=== PATIENT | male | born 1960 | race African-American/Black ===

== ENCOUNTER 2018-04-06 00:49 | Inpatient (IN) | payer SELFPAY ==
[~2018-04-06] VITALS: Ht 175.3 cm; Wt 103.9 kg
[2018-04-06 02:18] LABS: BASOPHILS % 0.7 % (0.0-2.0); HEMATOCRIT. 42.6 % (42.0-52.0); HEMOGLOBIN. 13.8 g/dL (14.0-18.0); MEAN CORPUSCULAR HEMOGLOBIN 28.2 pg (28.0-32.0); MEAN CORPUSCULAR VOLUME 87.1 fL (80.0-94.0); MEAN PLATELET VOLUME 9.5 fl (7.4-10.4); MONOCYTES % 4.7 % (2.0-8.0); NEUTROPHILS % 77.6 % (40.0-76.0); PLATELET 272 x1000/uL (130-400); RED BLOOD CELL COUNT 4.89 mill/uL (4.7-6.1); RED CELL DISTRIBUTION WIDTH 14.6 % (11.6-14.6)
[2018-04-06 02:20] LABS: CHLORIDE 100 mEq/L (98-107)
[2018-04-06] MEDS ORDERED: ASPIRIN 81MG TABLET PO NR (02:30)
[2018-04-06] MEDS ORDERED: ONDANSETRON HCL 4MG/2ML INJ IV STA (02:36)
[2018-04-06] MEDS ORDERED: MAGNESIUM/ALUMINUM HYDROXIDE/SIMETHICONE 30ML UDC PO STA (02:36)
[2018-04-06] MEDS ORDERED: FAMOTIDINE 20MG/2ML VIAL IV STA (02:36)
[2018-04-06] MEDS ORDERED: MORPHINE SULFATE 4 MG/ML CPJ (NOT FOR IM USE) IV STA (02:36)
[2018-04-06] MEDS ORDERED: NITROGLYCERIN OINT 1GM/INCH UDPKT TD ONE (03:00)
[2018-04-06] MEDS ORDERED: NITROGLYCERIN 0.4MG TABLET SL SL PRN (03:00)
[2018-04-06] MEDS ORDERED: ONDANSETRON HCL 4MG/2ML INJ IV PRN (10:30)
[2018-04-06] MEDS ORDERED: CLONIDINE 0.1MG TABLET PO PRN (10:30)
[2018-04-06 10:58] LABS: CREATINE KINASE MB FRACTION 4.3 ng/mL (0.5-3.6)
[2018-04-06] MEDS ORDERED: ENOXAPARIN 100MG/ML SYR SUBCUT NR (14:30)
[2018-04-06 14:40] LABS: *AMPHETAMINES SCREEN URINE NEGATIVE (NEGATIVE); *BARBITURATES SCREEN URINE NEGATIVE (NEGATIVE); *BENZODIAZEPINES SCREEN URINE NEGATIVE (NEGATIVE); *COCAINE SCREEN URINE NEGATIVE (NEGATIVE); CANNABINOID URINE SCREEN PRESUMTIVE POSITIVE (NEGATIVE); METHADONE URINE SCREEN NEGATIVE (NEGATIVE); OPIATES URINE SCREEN PRESUMTIVE POSITIVE (NEGATIVE); PHENCYCLIDINE URINE SCREEN NEGATIVE (NEGATIVE)
[2018-04-06 16:20] VITALS: BP 162/93
[2018-04-06] MEDS ORDERED: ATOR10TA69 PO (16:21)
[2018-04-06] MEDS ORDERED: ATEN50TA PO (16:22)
[2018-04-06] MEDS ORDERED: ISOS10TA2 PO (16:22)
[2018-04-06] MEDS ORDERED: ASPI-1159 PO (16:23)
[2018-04-06] MEDS ORDERED: HYDR25TA PO (16:23)
[2018-04-06] MEDS ORDERED: MORPHINE SULFATE 4 MG/ML CPJ (NOT FOR IM USE) IV PRN (16:45)
[2018-04-06 16:48] VITALS: BP 162/93
[2018-04-06] MEDS: OMEPRAZOLE 20MG CAPSULE EXTENDED RELEASE PO SCH (17:57)
[2018-04-06] MEDS: ASPIRIN 81MG TABLET PO SCH (17:57)
[2018-04-06] MEDS: NITROGLYCERIN OINT 1GM/INCH UDPKT TD SCH ×2 (17:58→22:27)
[2018-04-06 18:00] VITALS: BP 144/79
[2018-04-06 20:00] VITALS: BP 133/78
[2018-04-06 22:00] VITALS: BP 129/89
[2018-04-06] MEDS: ATORVASTATIN CALCIUM 20MG TABLET PO SCH (22:27)
[2018-04-06] MEDS: METOPROLOL TARTRATE 25MG TABLET PO SCH (22:28)
[2018-04-07] VITALS (14 sets, daily range): BP systolic 119–139; BP diastolic 64–94
[2018-04-07] MEDS: OMEPRAZOLE 20MG CAPSULE EXTENDED RELEASE PO SCH (06:43)
[2018-04-07] MEDS: NITROGLYCERIN OINT 1GM/INCH UDPKT TD SCH ×3 (06:45→20:58)
[2018-04-07 07:51] LABS: BASOPHILS % 0.2 % (0.0-2.0); EOSINOPHILS % 0.1 % (0.0-5.0); HEMATOCRIT. 40.5 % (42.0-52.0); HEMOGLOBIN. 13.1 g/dL (14.0-18.0); LYMPHOCYTES % 11.9 % (20.0-50.0); MEAN CORPUSCULAR HEMOGLOBIN 27.8 pg (28.0-32.0); MEAN CORPUSCULAR VOLUME 86.3 fL (80.0-94.0); MEAN PLATELET VOLUME 9.5 fl (7.4-10.4); MONOCYTES % 7.5 % (2.0-8.0); NEUTROPHILS % 80.3 % (40.0-76.0); PLATELET 226 x1000/uL (130-400); RED BLOOD CELL COUNT 4.69 mill/uL (4.7-6.1); RED CELL DISTRIBUTION WIDTH 14.5 % (11.6-14.6)
[2018-04-07 07:59] LABS: CHLORIDE 99 mEq/L (98-107)
[2018-04-07 08:42] LABS: CREATINE KINASE 1306 IU/L (39-308); CREATINE KINASE MB FRACTION 98.1 ng/mL (0.5-3.6); HDL CHOLESTEROL 45 mg/dL (40-59); LDL CHOLESTEROL 111 mg/dL (5-100)
[2018-04-07] MEDS: METOPROLOL TARTRATE 25MG TABLET PO SCH ×3 (08:43→20:59)
[2018-04-07] MEDS: ASPIRIN 81MG TABLET PO SCH ×2 (08:46→16:49)
[2018-04-07] MEDS ORDERED: ASPIRIN 81MG TABLET PO SCH (09:00)
[2018-04-07] MEDS ORDERED: AMLODIPINE 5MG TABLET PO SCH (09:00)
[2018-04-07] MEDS ORDERED: IODIXANOL 320MG/ML 100 ML BOTTLE IV ONE (12:52)
[2018-04-07] MEDS ORDERED: FENTANYL CITRATE/PF 50MCG/ML 2ML VIAL ONE (13:18)
[2018-04-07] MEDS ORDERED: LIDOCAINE HCL 1% 20ML VIAL (Pyxis) INJ ONE (13:18)
[2018-04-07] MEDS ORDERED: MIDAZOLAM HCL 2 MG/2 ML VIAL ONE (13:18)
[2018-04-07] MEDS ORDERED: IOHEXOL-300 100 ML BOTTLE ONE (13:47)
[2018-04-07] MEDS ORDERED: IODIXANOL 320MG/ML 200ML BOTTLE ONE (13:50)
[2018-04-07] MEDS ORDERED: CLOPIDOGREL 75MG TABLET ONE (14:43)
[2018-04-07] MEDS ORDERED: ACETAMINOPHEN 325MG TABLET PO PRN (14:45)
[2018-04-07] MEDS ORDERED: MORPHINE SULFATE 4 MG/ML CPJ (NOT FOR IM USE) IV PRN (14:45)
[2018-04-07] MEDS ORDERED: SODIUM CHLORIDE 0.45% 1,000 ML IV ONE (14:45)
[2018-04-07] MEDS ORDERED: ATROPINE SULFATE 1MG/10ML SYR IV PRN (14:45)
[2018-04-07] MEDS ORDERED: ONDANSETRON HCL 4MG/2ML INJ IV PRN (14:45)
[2018-04-07] MEDS ORDERED: CLOPIDOGREL 75MG TABLET PO NR (14:45)
[2018-04-07] MEDS ORDERED: HEPARIN SODIUM 1,000 UNIT/1ML VIAL IV ONE (15:06)
[2018-04-07] MEDS ORDERED: NITROGLYCERIN 50MCG/ML 10ML VIAL (CATH LAB) IV ONE (15:39)
[2018-04-07] MEDS ORDERED: NICARDIPINE 100MCG/ML 10ML VIAL (CATH LAB) IV ONE (15:39)
[2018-04-07 18:09] LABS: CLARITY URINE CLEAR (CLEAR); COLOR URINE YELLOW (YELLOW); KETONES URINE NEGATIVE (NEGATIVE); LEUKOCYTE ESTERASE URINE NEGATIVE (NEGATIVE); NITRITE URINE NEGATIVE (NEGATIVE); OCCULT BLOOD URINE NEGATIVE (NEGATIVE); PROTEIN URINE NEGATIVE (NEGATIVE); SPECIFIC GRAVITY URINE 1.045 (1.005-1.030)
[2018-04-07] MEDS: ATORVASTATIN CALCIUM 20MG TABLET PO SCH (20:58)
[2018-04-08] VITALS (10 sets, daily range): BP systolic 102–114; BP diastolic 54–74
[2018-04-08] MEDS: NITROGLYCERIN OINT 1GM/INCH UDPKT TD SCH (06:07)
[2018-04-08 07:07] LABS: BASOPHILS % 0.5 % (0.0-2.0); EOSINOPHILS % 0.7 % (0.0-5.0); HEMOGLOBIN. 13.7 g/dL (14.0-18.0); LYMPHOCYTES % 17.6 % (20.0-50.0); MEAN CORPUSCULAR HEMOGLOBIN 28.9 pg (28.0-32.0); MEAN CORPUSCULAR VOLUME 86.4 fL (80.0-94.0); MEAN PLATELET VOLUME 9.3 fl (7.4-10.4); MONOCYTES % 8.3 % (2.0-8.0); NEUTROPHILS % 72.9 % (40.0-76.0); PLATELET 219 x1000/uL (130-400); RED BLOOD CELL COUNT 4.75 mill/uL (4.7-6.1); RED CELL DISTRIBUTION WIDTH 14.4 % (11.6-14.6)
[2018-04-08 07:42] LABS: CHLORIDE 102 mEq/L (98-107)
[2018-04-08] MEDS ORDERED: FAMOTIDINE 20MG TABLET PO SCH (09:00)
[2018-04-08] MEDS: METOPROLOL TARTRATE 25MG TABLET PO SCH (09:00)
[2018-04-08] MEDS ORDERED: ASPIRIN 325MG TABLET PO SCH (09:00)
[2018-04-08] MEDS ORDERED: CLOPIDOGREL 75MG TABLET PO SCH (09:00)
== END 2018-04-08 14:30 | disposition home or self-care (01) | DRG 174 ==
LOC: ER 00:49 → 3WST 02:52 → EDBEDREQSVC 13:27 → CANRESERV 15:02 → ENRESERV 15:02
PROVIDERS: ADMIT Internal Medicine; ATTEND Internal Medicine
PROC: 027034Z Dilation of Coronary Artery, One Artery with Drug-eluting Intraluminal Device, Percutaneous Approach (ICD-10-PCS; principal; 2018-04-07)
PROC: 4A023N7 Measurement of Cardiac Sampling and Pressure, Left Heart, Percutaneous Approach (ICD-10-PCS; 2018-04-07)
PROC: B2111ZZ Fluoroscopy of Multiple Coronary Arteries using Low Osmolar Contrast (ICD-10-PCS; 2018-04-07)
PROC: 02703ZZ Dilation of Coronary Artery, One Artery, Percutaneous Approach (ICD-10-PCS; 2018-04-07)
DX: I21.4 Non-ST elevation (NSTEMI) myocardial infarction (principal); D72.829 Elevated white blood cell count, unspecified; E66.9 Obesity, unspecified; F12.90 Cannabis use, unspecified, uncomplicated; E78.5 Hyperlipidemia, unspecified; I10 Essential (primary) hypertension; I25.10 Atherosclerotic heart disease of native coronary artery without angina pectoris; R73.9 Hyperglycemia, unspecified; R74.0 Nonspecific elevation of levels of transaminase and lactic acid dehydrogenase [LDH]; Z82.49 Family history of ischemic heart disease and other diseases of the circulatory system; Z68.33 Body mass index [BMI] 33.0-33.9, adult; Z79.82 Long term (current) use of aspirin; Z79.899 Other long term (current) drug therapy; Z71.3 Dietary counseling and surveillance
CPT/HCPCS: 36415; 71045; 80048; 80061; 80305; 82550; 82553; 83036; 83735; 83880; 84443; 84484; 85347; 85379; 92928; 93005; 93306; 93458; 96372; 96374; 96375; 99285; C1725; C1769; C1874; C1887; C1893; J1644; J1650; J2250; J2270; J2405; J3010; J3490; J7040; Q9967